=== PATIENT | male | born 1965 | race Hispanic/Latino ===

== ENCOUNTER 2018-02-18 00:20 | Emergency (ER) | payer BC ==
[2018-02-18] MEDS ORDERED: ONDANSETRON HCL 4 MG/2 ML VIAL ONE (00:54)
[2018-02-18 00:55] LABS: BASOPHILS % (AUTO) 0.5 % (0.0-5.0); EOSINOPHILS % (AUTO) 2.2 % (0.0-8.0); HEMATOCRIT 51.6 % (42-54); LYMPHOCYTES % (AUTO) 23.8 % (21.0-51.0); MEAN CORPUSCULAR HEMOGLOBIN 27.6 pg (27.0-33.0); MEAN CORPUSCULAR HGB CONC 31.5 g/dL (32.0-36.0); MEAN CORPUSCULAR VOLUME 87.7 fL (79-99); MONOCYTES % (AUTO) 8.9 % (3.0-13.0); NEUTROPHILS % (AUTO) 64.6 % (40.0-77.0); PLATELET COUNT (AUTO) 238 K/uL (130-400); RED BLOOD CELL COUNT(AUTO) 5.88 MIL/uL (4.50-6.20); RED CELL DISTRIBUTION WIDTH 13.6 % (11.0-15.5); WHITE BLOOD COUNT (AUTO) 12.6 K/uL (4.8-10.8)
[2018-02-18] MEDS ORDERED: MORPHINE SULFATE 4 MG/1ML SYG ONE (00:55)
[2018-02-18 01:06] LABS: APPEARANCE,URINE Clear (CLEAR); BILIRUBIN,URINE Negative (NEGATIVE); COLOR,URINE Yellow (YELLOW); GLUCOSE, URINE (UA) Negative (NEGATIVE); KETONES,URINE Negative (NEGATIVE); LEUKOCYTE ESTERASE ,URINE Negative (NEGATIVE); NITRATE,URINE Negative (NEGATIVE); OCCULT BLOOD,URINE Negative (NEGATIVE); PH,URINE 6.5 (5.0-8.0); PROTEIN,URINE Trace (NEGATIVE); UROBILINOGEN,URINE 0.2 mg/dL (0.2-1.0)
[2018-02-18 01:09] LABS: POTASSIUM 3.4 mmol/L (3.5-5.1)
[2018-02-18 01:15] LABS: ALBUMIN 3.9 g/dL (3.5-5.0); BILIRUBIN,TOTAL 0.5 mg/dL (0.2-1.0); TOTAL PROTEIN, SERUM 8.2 g/dL (6.0-8.3)
[2018-02-18 01:19] LABS: INR 0.96 (0.85-1.15); PARTIAL THROMBOPLASTIN TIME 31.2 SEC (26.3-35.5); PROTHROMBIN TIME 10.1 SEC (9.6-11.6)
== END 2018-02-18 03:19 | disposition home or self-care (01) ==
LOC: EDH 00:20
DX: R10.13 Epigastric pain (principal); Z87.891 Personal history of nicotine dependence
CPT/HCPCS: 36415; 74176; 76705; 80053; 81003; 83690; 84484; 85025; 85610; 85730; 93005; 96374; 96375; 99285; J2270; J2405

== ENCOUNTER 2018-04-30 18:16 | Inpatient (IN) | payer BC, OTHER ==
[~2018-04-30] VITALS: Ht 167.6 cm; Wt 135.4 kg
[2018-04-30 18:40] LABS: BASOPHILS % (AUTO) 0.3 % (0.0-5.0); EOSINOPHILS % (AUTO) 0.7 % (0.0-8.0); HEMATOCRIT 46.5 % (42-54); LYMPHOCYTES % (AUTO) 15.2 % (21.0-51.0); MEAN CORPUSCULAR HEMOGLOBIN 28.4 pg (27.0-33.0); MEAN CORPUSCULAR HGB CONC 31.8 g/dL (32.0-36.0); MEAN CORPUSCULAR VOLUME 89.4 fL (79-99); MONOCYTES % (AUTO) 8.9 % (3.0-13.0); NEUTROPHILS % (AUTO) 74.9 % (40.0-77.0); PLATELET COUNT (AUTO) 187 K/uL (130-400)
[2018-04-30 18:50] LABS: CREATININE 0.8 mg/dL (0.5-1.5); POTASSIUM 3.5 mmol/L (3.5-5.1)
[2018-04-30 18:54] LABS: ALBUMIN 3.4 g/dL (3.5-5.0); BILIRUBIN,DIRECT 0.1 mg/dL (0.0-0.3); BILIRUBIN,TOTAL 0.5 mg/dL (0.2-1.0); TOTAL PROTEIN, SERUM 7.1 g/dL (6.0-8.3)
[2018-04-30] MEDS ORDERED: ASPIRIN 325 MG TABLET ONE (18:59)
[2018-04-30] MEDS ORDERED: FUROSEMIDE 10 MG/ML 2ML VIAL ONE ×2 (18:59→19:00)
[2018-04-30 19:03] LABS: CREATINE KINASE, TOTAL 112 U/L (21-232); MYOGLOBIN 25 ng/mL (10-92); TROPONIN I < 0.04 ng/mL (0.00-0.06)
[2018-04-30 19:36] LABS: ABG BASE EXCESS 9.4 mmol/L (-2.0-3.0); ABG HCO3 40.1 mmol/L (21.0-28.0); ABG PCO2 87 mmHg (35-48)
[2018-04-30 19:58] LABS: B-TYPE NATRIURETIC PEPTIDE 64 pg/mL (0-100)
[2018-04-30 20:39] LABS: AMPHET/METH SCREEN,URINE NEGATIVE (NEGATIVE); BARBITURATE SCREEN, URINE NEGATIVE (NEGATIVE); BENZODIAZEPINES SCREEN,URINE NEGATIVE (NEGATIVE); CANNABINOID SCREEN,URINE NEGATIVE (NEGATIVE); COCAINE SCREEN,URINE NEGATIVE (NEGATIVE); OPIATE SCREEN,URINE NEGATIVE (NEGATIVE); PHENCYCLIDINE SCREEN,URINE NEGATIVE (NEGATIVE)
[2018-04-30] MEDS ORDERED: ACETAMINOPHEN 325 MG TAB PO PRN ×2 (21:00)
[2018-04-30] MEDS ORDERED: ONDANSETRON HCL 4 MG/2 ML VIAL IV PRN (21:00)
[2018-04-30 21:10] LABS: HEMOGLOBIN A1C 7.7 % (4.0-6.0)
--- NOTE | 2018-04-30 21:25 | NUR ---
REPORT RECEIVED FROM MISHA MARIA
[2018-04-30] MEDS ORDERED: IPRATROPIUM/ALBUTEROL SULFATE 3 ML SOLUTION IH ONE (21:26)
[2018-04-30] MEDS ORDERED: GLUCAGON 1MG KIT 1 MG ML IM PRN (21:30)
[2018-04-30] MEDS ORDERED: DEXTROSE 50%-WATER 50 ML DISP.SYRIN IV PRN (21:30)
[2018-04-30 21:32] LABS: BILIRUBIN,URINE Negative (NEGATIVE); COLOR,URINE Yellow (YELLOW); GLUCOSE, URINE (UA) Negative (NEGATIVE); KETONES,URINE Negative (NEGATIVE); LEUKOCYTE ESTERASE ,URINE Negative (NEGATIVE); NITRATE,URINE Negative (NEGATIVE); OCCULT BLOOD,URINE Negative (NEGATIVE); PROTEIN,URINE Negative (NEGATIVE); UROBILINOGEN,URINE 0.2 mg/dL (0.2-1.0)
[2018-04-30 21:35] LABS: APPEARANCE,URINE CLEAR (CLEAR)
[2018-04-30 21:49] VITALS: BP 144/95
--- NOTE | 2018-04-30 21:50 | NUR ---
PT ARRIVED TO UNIT. PT IS STABLE. ON BIPAP. /, R20, FIO2 35%. AT BEDSIDE. PT ABLE TO AMBULATE WITHOUT ASSISTANCE. SOB NOTED. NO PAIN STATED. AAOX3. PERRLA. KISWAHILI SPEAKING. NO MEDICAL HISTORY STATED. NO SURGICAL HISTORY STATED. GENE REYES IN ROOM WITH PT. NO MEDICATIONS TAKEN AT HOME. STATES PT HAS NOT VISITED A DOCTOR IN YEARS. ONLY DURING EMERGENCIES. PT HAS GENERAL EDEMA. UPPER EXTREMITIES +2 PITTING, LOWER EXTREMITIES +3 PITTING. ACTIVE BOWEL SOUNDS. LAST BM TODAY 04/30. 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
[2018-04-30] MEDS: IPRATROPIUM/ALBUTEROL SULFATE 3 ML SOLUTION IH SCH (22:00)
[2018-04-30] MEDS ORDERED: POTASSIUM CHLORIDE 20MEQ/100ML 100 ML IV PRN (22:15)
[2018-04-30] MEDS ORDERED: MAGNESIUM 2GM PREMIX 50ML 50 ML IV PRN (22:15)
[2018-04-30] MEDS ORDERED: LIDOCAINE HCL-MPF 1% 2ML VIAL IVP PRN (22:15)
[2018-04-30] MEDS ORDERED: POTASSIUM CHLORIDE 10% ELIXIR 20 MEQ/15 ML UDCUP PO PRN (22:15)
[2018-04-30] MEDS: METHYLPREDNISOLONE SOD SUCC 125MG/2ML VIAL IV SCH (23:00)
[2018-04-30] MEDS: FAMOTIDINE 20MG TAB 20 MG TAB PO SCH (23:00)
[2018-04-30] MEDS: ZOSYN 3.375GM+NS 50ML 50 ML IV SCH (23:00)
[2018-05-01] VITALS (7 sets, daily range): BP systolic 109–138; BP diastolic 65–93
[2018-05-01] MEDS: IPRATROPIUM/ALBUTEROL SULFATE 3 ML SOLUTION IH SCH ×6 (01:25→23:39)
[2018-05-01 03:42] LABS: MEAN CORPUSCULAR HEMOGLOBIN 28.2 pg (27.0-33.0); MEAN CORPUSCULAR VOLUME 91.1 fL (79-99); NUCLEATED RED BLOOD CELLS 0.1 % (0.0-0.19); PLATELET COUNT (AUTO) 203 K/uL (130-400); RED BLOOD CELL COUNT(AUTO) 5.38 MIL/uL (4.50-6.20); RED CELL DISTRIBUTION WIDTH 14.2 % (11.0-15.5); WHITE BLOOD COUNT (AUTO) 11.4 K/uL (4.8-10.8)
[2018-05-01 03:55] LABS: LYMPHOCYTES % (MANUAL) 9 % (22-44); MAN.DIFF COMMENT-IMPRESSION MANUAL DIFFERENTIAL; MONOCYTES % (MANUAL) 8 % (2-9); PLATELET MORPHOLOGY COMMENT ADEQUATE; SEGMENTED NEUTROPHILS % 83 % (40-70)
[2018-05-01 03:56] LABS: CREATININE 0.9 mg/dL (0.5-1.5); MAGNESIUM 1.5 mg/dL (1.80-2.40); POTASSIUM 4.1 mmol/L (3.5-5.1)
[2018-05-01] MEDS: ZOSYN 3.375GM+NS 50ML 50 ML IV SCH ×4 (05:20→20:16)
[2018-05-01] MEDS: METHYLPREDNISOLONE SOD SUCC 125MG/2ML VIAL IV SCH ×2 (05:20→13:09)
[2018-05-01] MEDS: FUROSEMIDE 10 MG/ML 4ML VIAL IV SCH ×2 (05:21→17:06)
[2018-05-01 05:41] LABS: ABG BASE EXCESS 8.9 mmol/L (-2.0-3.0); ABG HCO3 39.1 mmol/L (21.0-28.0); ABG PCO2 82 mmHg (35-48)
[2018-05-01] MEDS ORDERED: METFORMIN HCL 500 MG TAB.SR.24H PO SCH (08:00)
[2018-05-01 08:24] LABS: ABG BASE EXCESS 8.2 mmol/L (-2.0-3.0); ABG HCO3 39.3 mmol/L (21.0-28.0); ABG OXYGEN SATURATION 92.9 % (95.0-99.0); ABG PCO2 90 mmHg (35-48)
--- NOTE | 2018-05-01 08:30 | NUR ---
RESTING IN BED WITH HOB AT SEMI-WRIGHT'S POSITION. EYES CLOSED. BIPAP IN PLACE, /, FIO2 AT 35%, RATE OF 20. OPENS EYES TO VERBAL COMMAND BUT LETHARGIC. DENIES ANY CURRENT PAIN. INFORMED PT. RE:BIPAP USE AND RATIONALE, VERBALIZED UNDERSTANDING AND QUESTIONS ANSWERED. COMPLETE ASSESSMENT DONE. CALL LIGHT WITHIN REACH, VERBALIZED ABILITY TO USE. BED LOW, SIDE RAILS UP X2. ROOM DOOR OPEN.
[2018-05-01] MEDS: FAMOTIDINE 20MG TAB 20 MG TAB PO SCH ×2 (08:36→20:16)
[2018-05-01] MEDS: ENOXAPARIN SODIUM 40 MG/0.4 ML SYRINGE SQ SCH (08:37)
--- NOTE | 2018-05-01 09:00 | NUR ---
REMOVED BIPAP FOR BREAKFAST AND PLACED ON 3L/NC. CALL LIGHT WITHIN REACH.
--- NOTE | 2018-05-01 09:30 | NUR ---
PLACED PT. BACK ON BIPAP AT PREVIOUS SETTINGS. CALL LIGHT WITHIN REACH. SPOUSE AND MOTHER AT BEDSIDE.
[2018-05-01] MEDS ORDERED: FUROSEMIDE 10 MG/ML 4ML VIAL IV SCH (10:15)
--- NOTE | 2018-05-01 11:00 | NUR ---
RESTING IN BED WITH EYES CLOSED, RESP.'S EVEN AND UNLABORED. CALL LIGHT WITHIN REACH.
--- NOTE | 2018-05-01 12:15 | NUR ---
REMOVED BIPAP FOR LUNCH AND PLACED ON 3L/NC. CALL LIGHT WITHIN REACH. SPOUSE AND PT.'S MOTHER AT BEDSIDE.
--- NOTE | 2018-05-01 12:45 | NUR ---
PLACED BACK ON BIPAP. CALL LIGHT WITHIN REACH. SPOUSE AND MOTHER AT BEDSIDE.
[2018-05-01] MEDS: LEVOFLOXACIN 750 MG/D5W 150 ML 150 ML IV SCH (13:08)
[2018-05-01] MEDS: INSULIN HUMULIN R 100 UNIT/ML 3ML SQ SCH ×3 (13:10→20:23)
--- NOTE | 2018-05-01 16:20 | NUR ---
DC Plan Patient lives w/ . Indep performs ADLs. 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 [facility] never has seen a doctor. Low income list provided. [facility] no longer has insurance coverage. Informed cost for home and portable O2 set-up may be around $750. CM to continue to follow. CD Addendum: 05/02/18 at 1711 by JESSICA POPE CM Amended: Links added.
[2018-05-01] MEDS: METFORMIN HCL 500 MG TABLET PO SCH (17:01)
--- NOTE | 2018-05-01 17:10 | NUR ---
REMOVED BIPAP FOR DINNER AND PLACED ON 3L/NC. PT. ABLE TO SPEAK FOR LONGER PERIODS OF TIME WITHOUT SOB. CALL LIGHT WITHIN REACH. SPOUSE AT BEDSIDE.
--- NOTE | 2018-05-01 18:00 | NUR ---
PLACED BACK ON BIPAP. CALL LIGHT WITHIN REACH. SPOUSE AT BEDSIDE.
[2018-05-01] MEDS: SIMVASTATIN 20 MG TABLET PO SCH (20:16)
[2018-05-02] MEDS: IPRATROPIUM/ALBUTEROL SULFATE 3 ML SOLUTION IH SCH ×6 (02:39→21:41)
[2018-05-02 03:00] VITALS: BP 102/65
[2018-05-02 03:41] LABS: BASOPHILS % (AUTO) 0.1 % (0.0-5.0); HEMATOCRIT 46.6 % (42-54); LYMPHOCYTES % (AUTO) 6.5 % (21.0-51.0); MEAN CORPUSCULAR HEMOGLOBIN 28.5 pg (27.0-33.0); MEAN CORPUSCULAR HGB CONC 31.9 g/dL (32.0-36.0); MEAN CORPUSCULAR VOLUME 89.5 fL (79-99); MONOCYTES % (AUTO) 8.1 % (3.0-13.0); NEUTROPHILS % (AUTO) 85.3 % (40.0-77.0); PLATELET COUNT (AUTO) 238 K/uL (130-400); RED CELL DISTRIBUTION WIDTH 13.8 % (11.0-15.5); WHITE BLOOD COUNT (AUTO) 10.4 K/uL (4.8-10.8)
[2018-05-02 04:05] LABS: CREATININE 1.3 mg/dL (0.5-1.5); MAGNESIUM 1.8 mg/dL (1.80-2.40); POTASSIUM 4.3 mmol/L (3.5-5.1); THYROID STIMULATING HORMONE 0.85 uIU/mL (0.36-3.74)
[2018-05-02] MEDS: ZOSYN 3.375GM+NS 50ML 50 ML IV SCH ×3 (05:02→20:46)
[2018-05-02] MEDS: FUROSEMIDE 10 MG/ML 4ML VIAL IV SCH ×2 (05:02→17:26)
[2018-05-02] MEDS: INSULIN HUMULIN R 100 UNIT/ML 3ML SQ SCH ×4 (05:59→20:47)
[2018-05-02 08:08] VITALS: BP 132/81
--- NOTE | 2018-05-02 08:15 | NUR ---
UPON ENTERING ROOM, PT. SITTING UP ON SIDE OF BED WITH BIPAP IN PLACE. REMOVED BIPAP AND PLACED ON 3L/NC FOR BREAKFAST. AAOX3, RESP.'S EVEN AND UNLABORED. DENIES ANY C/O SOB, DENIES ANY CURRENT PAIN. STATES BREATHING "MUCH BETTER." COMPLETE ASSESSMENT DONE. INFORMED PT. TO CALL FOR ASSISTANCE IF NEEDED OR FEELS SOB AND BIPAP CAN BE REAPPLIED, VERBALIZED UNDERSTANDING. CALL LIGHT WITHIN REACH, VERBALIZED ABILITY TO USE. BED LOW, SIDE RAILS UP X2.
[2018-05-02] MEDS: ASPIRIN 81MG TAB.CHEW PO SCH (08:17)
[2018-05-02] MEDS: FAMOTIDINE 20MG TAB 20 MG TAB PO SCH ×2 (08:17→20:47)
[2018-05-02] MEDS: METFORMIN HCL 500 MG TABLET PO SCH ×3 (08:17→17:26)
[2018-05-02] MEDS: ENOXAPARIN SODIUM 40 MG/0.4 ML SYRINGE SQ SCH (08:18)
[2018-05-02] MEDS: LEVOFLOXACIN 750 MG/D5W 150 ML 150 ML IV SCH (08:21)
--- NOTE | 2018-05-02 08:55 | NUR ---
PT. IN W/C HEADED FOR CT CHEST W/O CONTRAST. DR. GUILLEN IN ROOM ASSESSING/SPEAKING WITH PT. RE:PLAN OF CARE. QUESTIONS ANSWERED BY DR. GUILLEN.
[2018-05-02] MEDS ORDERED: LEVOFLOXACIN 750 MG/D5W 150 ML 150 ML IV SCH (09:00)
[2018-05-02 11:00] LABS: ABG BASE EXCESS 10.3 mmol/L (-2.0-3.0); ABG HCO3 39.2 mmol/L (21.0-28.0); ABG OXYGEN SATURATION 80.4 % (95.0-99.0); ABG PCO2 72 mmHg (35-48)
[2018-05-02 12:00] VITALS: BP 107/54
--- NOTE | 2018-05-02 13:05 | NUR ---
Kleber MCCRACKEN BOBBIN FIXER IN ROOM SPEAKING WITH PT. AND PT.'S SPOUSE AT BEDSIDE.
[2018-05-02 16:00] VITALS: BP 107/77
--- NOTE | 2018-05-02 17:28 | NUR ---
Nutrition Intervention: Nutrition notification for morbid obesity, wt loss recommendations. Pt new to DM II. JAVIER provided pt with diabetes diet education with wt loss tips. Pt continues to need reinforcements on diabetes diet, JAVIER referred pt to community classes that will teach him more on the diet. Pt encouraged to begin walking on a daily basis with his . Pt verbalize understanding. Pt with multiple dietary questions and concerns, all questions answered by JAVIER. Recommendations: Continue current diet therapy. Please consult JAVIER as nutrition concerns arise. Addendum: 05/02/18 at 1731 by [address] Amended: Links added.
[2018-05-02 19:00] VITALS: BP 112/65
[2018-05-02] MEDS: SIMVASTATIN 20 MG TABLET PO SCH (20:47)
[2018-05-02 23:00] VITALS: BP 121/89
[2018-05-03] MEDS: IPRATROPIUM/ALBUTEROL SULFATE 3 ML SOLUTION IH SCH ×6 (01:19→22:09)
[2018-05-03 03:00] VITALS: BP 126/77
[2018-05-03 03:46] LABS: HEMATOCRIT 46.2 % (42-54); MEAN CORPUSCULAR HEMOGLOBIN 28.3 pg (27.0-33.0); MEAN CORPUSCULAR HGB CONC 31.2 g/dL (32.0-36.0); MEAN CORPUSCULAR VOLUME 90.6 fL (79-99); PLATELET COUNT (AUTO) 226 K/uL (130-400); RED CELL DISTRIBUTION WIDTH 14.3 % (11.0-15.5); WHITE BLOOD COUNT (AUTO) 10.8 K/uL (4.8-10.8)
[2018-05-03 04:12] LABS: CREATININE 1.2 mg/dL (0.5-1.5); POTASSIUM 3.4 mmol/L (3.5-5.1)
[2018-05-03] MEDS: ZOSYN 3.375GM+NS 50ML 50 ML IV SCH ×3 (04:57→20:18)
[2018-05-03] MEDS: FUROSEMIDE 10 MG/ML 4ML VIAL IV SCH ×2 (04:57→16:48)
[2018-05-03] MEDS: POTASSIUM CHLORIDE 20 MEQ ERTAB PO PRN ×2 (04:58→06:35)
[2018-05-03] MEDS: INSULIN HUMULIN R 100 UNIT/ML 3ML SQ SCH ×4 (07:30→21:00)
[2018-05-03 07:48] VITALS: BP 121/74
[2018-05-03] MEDS: LEVOFLOXACIN 750 MG/D5W 150 ML 150 ML IV SCH (09:12)
[2018-05-03] MEDS: ENOXAPARIN SODIUM 40 MG/0.4 ML SYRINGE SQ SCH (09:19)
[2018-05-03] MEDS: FAMOTIDINE 20MG TAB 20 MG TAB PO SCH ×2 (09:25→20:18)
[2018-05-03] MEDS: METFORMIN HCL 500 MG TABLET PO SCH ×3 (09:26→16:48)
[2018-05-03] MEDS: ASPIRIN 81MG TAB.CHEW PO SCH (09:26)
[2018-05-03 11:19] VITALS: BP 120/74
[2018-05-03 15:50] VITALS: BP 121/59
[2018-05-03 19:30] VITALS: BP 130/75
[2018-05-03] MEDS: SIMVASTATIN 20 MG TABLET PO SCH (20:18)
[2018-05-04 01:34] VITALS: BP 126/73
[2018-05-04] MEDS: IPRATROPIUM/ALBUTEROL SULFATE 3 ML SOLUTION IH SCH ×6 (02:14→21:37)
[2018-05-04 05:24] VITALS: BP 120/71
[2018-05-04] MEDS: FUROSEMIDE 10 MG/ML 4ML VIAL IV SCH ×2 (05:32→16:51)
[2018-05-04] MEDS: ZOSYN 3.375GM+NS 50ML 50 ML IV SCH (05:32)
[2018-05-04] MEDS: POTASSIUM CHLORIDE 20 MEQ ERTAB PO PRN (05:34)
[2018-05-04] MEDS: INSULIN HUMULIN R 100 UNIT/ML 3ML SQ SCH ×4 (07:11→21:00)
[2018-05-04 07:35] VITALS: BP 130/77
--- NOTE | 2018-05-04 08:30 | NUR ---
DR. ANNA IS IN TO SEE PATIENT. PER MD, PATIENT WILL NEED A SLEEP STUDY WHEN HE GETS DISCHARGED.
[2018-05-04] MEDS: LEVOFLOXACIN 750 MG/D5W 150 ML 150 ML IV SCH (09:00)
[2018-05-04] MEDS: FAMOTIDINE 20MG TAB 20 MG TAB PO SCH ×2 (09:19→20:18)
[2018-05-04] MEDS: METFORMIN HCL 500 MG TABLET PO SCH ×3 (09:19→16:51)
[2018-05-04] MEDS: ENOXAPARIN SODIUM 40 MG/0.4 ML SYRINGE SQ SCH (09:20)
[2018-05-04] MEDS: ASPIRIN 81MG TAB.CHEW PO SCH (09:26)
[2018-05-04] MEDS: LEVOFLOXACIN 750 MG TABLET PO SCH (10:07)
[2018-05-04 11:51] VITALS: BP 120/90
--- NOTE | 2018-05-04 13:30 | NUR ---
DR. Abrams AND DEBBIE CAMPOS NP ARE ROUNDING ON THIS PATIENT. PER MD, PATIENT WILL NEED TO BE REEVALUATED BY RT FOR HOME O2 TOMORROW. WILL CONTINUE TO MONITOR PATIENT FOR NOW.
[2018-05-04 16:33] VITALS: BP 123/82
[2018-05-04 20:09] VITALS: BP 117/68
[2018-05-04] MEDS: SIMVASTATIN 20 MG TABLET PO SCH (20:18)
[2018-05-05] VITALS: BP 126/74
[2018-05-05] MEDS: IPRATROPIUM/ALBUTEROL SULFATE 3 ML SOLUTION IH SCH ×4 (02:39→13:58)
[2018-05-05 04:01] LABS: BASOPHILS % (AUTO) 0.3 % (0.0-5.0); EOSINOPHILS % (AUTO) 2.5 % (0.0-8.0); HEMATOCRIT 44.4 % (42-54); LYMPHOCYTES % (AUTO) 19.5 % (21.0-51.0); MEAN CORPUSCULAR HEMOGLOBIN 28.3 pg (27.0-33.0); MEAN CORPUSCULAR HGB CONC 31.4 g/dL (32.0-36.0); MEAN CORPUSCULAR VOLUME 90.1 fL (79-99); NEUTROPHILS % (AUTO) 65.7 % (40.0-77.0); PLATELET COUNT (AUTO) 212 K/uL (130-400); RED BLOOD CELL COUNT(AUTO) 4.92 MIL/uL (4.50-6.20); RED CELL DISTRIBUTION WIDTH 13.8 % (11.0-15.5)
[2018-05-05 04:39] VITALS: BP 108/76
[2018-05-05 04:51] LABS: CREATININE 0.8 mg/dL (0.5-1.5); POTASSIUM 3.8 mmol/L (3.5-5.1)
[2018-05-05] MEDS: FUROSEMIDE 10 MG/ML 4ML VIAL IV SCH (05:50)
[2018-05-05] MEDS: INSULIN HUMULIN R 100 UNIT/ML 3ML SQ SCH ×2 (06:23→11:30)
[2018-05-05 07:54] VITALS: BP 122/83
[2018-05-05] MEDS: METFORMIN HCL 500 MG TABLET PO SCH ×2 (09:33→12:06)
[2018-05-05] MEDS: LEVOFLOXACIN 750 MG TABLET PO SCH (09:33)
[2018-05-05] MEDS: ASPIRIN 81MG TAB.CHEW PO SCH (09:33)
[2018-05-05] MEDS: FAMOTIDINE 20MG TAB 20 MG TAB PO SCH (09:33)
[2018-05-05] MEDS: ENOXAPARIN SODIUM 40 MG/0.4 ML SYRINGE SQ SCH (09:34)
--- NOTE | 2018-05-05 11:21 | NUR ---
Patient walked without 02 around tele unit. O2 saturation ranges between 92% - 94%. Patient back in room O2sat 91%. Patient put back on O2 2L NC. O2sat 96%.
[2018-05-05 11:46] VITALS: BP 145/91
--- NOTE | 2018-05-05 13:59 | NUR ---
PATIENT WALKED AROUND THE TELE AND ICU UNIT WITHOUT O2. PATIENT O2SAT RANGE 91% TO 93%. WHEN PATIENT WOULD STOP WALKING O2 SAT WOULD INCREASE TO 95%. PATIENT BACK IN ROOM, O2SAT 95%.
[2018-05-05] MEDS ORDERED: SIMV20TA6 PO (14:31)
[2018-05-05] MEDS ORDERED: METF-445 PO (14:31)
[2018-05-05 15:26] VITALS: BP 121/74
[2018-05-08 08:45] LABS: ABG BASE EXCESS 10.9 mmol/L (-2.0-3.0); ABG HCO3 40.1 mmol/L (21.0-28.0); ABG OXYGEN SATURATION 95.4 % (95.0-99.0); ABG PCO2 74 mmHg (35-48)
== END 2018-05-05 16:15 | disposition home or self-care (01) | DRG 189 ==
LOC: EDH 18:16 → EDHIP 18:17 → 2DH 21:50
PROVIDERS: ADMIT Internal Medicine; ATTEND Internal Medicine
PROC: 5A09357 Assistance with Respiratory Ventilation, Less than 24 Consecutive Hours, Continuous Positive Airway Pressure (ICD-10-PCS; principal; 2018-05-01)
PROC: 5A09357 Assistance with Respiratory Ventilation, Less than 24 Consecutive Hours, Continuous Positive Airway Pressure (ICD-10-PCS; 2018-05-02)
PROC: 5A09357 Assistance with Respiratory Ventilation, Less than 24 Consecutive Hours, Continuous Positive Airway Pressure (ICD-10-PCS; 2018-05-03)
PROC: 5A09357 Assistance with Respiratory Ventilation, Less than 24 Consecutive Hours, Continuous Positive Airway Pressure (ICD-10-PCS; 2018-05-05)
DX: J96.21 Acute and chronic respiratory failure with hypoxia (principal); E66.2 Morbid (severe) obesity with alveolar hypoventilation; E87.2 Acidosis; G93.40 Encephalopathy, unspecified; Z68.42 Body mass index [BMI] 45.0-49.9, adult; Z99.11 Dependence on respirator [ventilator] status; J96.22 Acute and chronic respiratory failure with hypercapnia; E11.9 Type 2 diabetes mellitus without complications; E83.42 Hypomagnesemia; F17.200 Nicotine dependence, unspecified, uncomplicated; I10 Essential (primary) hypertension; Z80.42 Family history of malignant neoplasm of prostate; Z82.49 Family history of ischemic heart disease and other diseases of the circulatory system
CPT/HCPCS: 36415; 36600; 71045; 71046; 71250; 78580; 80048; 80061; 80076; 80305; 81003; 82550; 82803; 82948; 83036; 83735; 83874; 83880; 84443; 84484; 85025; 85027; 87040; 87486; 87581; 87633; 87798; 87804; 93005; 93306; 93970; 94640; 94660; 94664; A9540; G0378; J1650; J1815; J1940; J1956; J2543; J2930; J3475

== ENCOUNTER 2018-08-29 11:20 | Observation (INO) | payer OTHER ==
[~2018-08-29] VITALS: Ht 165.1 cm; Wt 134.4 kg
[~2018-08-29 11:20] MED LIST: METF-445 PO; SIMV20TA6 PO
[2018-08-29 11:52] LABS: ABG BASE EXCESS 3.8 mmol/L (-2.0-3.0); ABG HCO3 30.5 mmol/L (21.0-28.0); ABG OXYGEN SATURATION 96.5 % (95.0-99.0); ABG PCO2 54 mmHg (35-48)
[2018-08-29 12:02] LABS: BASOPHILS % (AUTO) 0.6 % (0.0-5.0); EOSINOPHILS % (AUTO) 3.1 % (0.0-8.0); HEMATOCRIT 40.1 % (42-54); LYMPHOCYTES % (AUTO) 20.9 % (21.0-51.0); MEAN CORPUSCULAR HEMOGLOBIN 28.5 pg (27.0-33.0); MEAN CORPUSCULAR HGB CONC 32.3 g/dL (32.0-36.0); MEAN CORPUSCULAR VOLUME 88.4 fL (79-99); MONOCYTES % (AUTO) 10.2 % (3.0-13.0); NEUTROPHILS % (AUTO) 65.2 % (40.0-77.0); PLATELET COUNT (AUTO) 215 K/uL (130-400); RED BLOOD CELL COUNT(AUTO) 4.54 MIL/uL (4.50-6.20); RED CELL DISTRIBUTION WIDTH 13.8 % (11.0-15.5); WHITE BLOOD COUNT (AUTO) 11.2 K/uL (4.8-10.8)
[2018-08-29 12:03] LABS: INR 0.96 (0.85-1.15); PARTIAL THROMBOPLASTIN TIME 36.4 SEC (26.3-35.5); PROTHROMBIN TIME 10.1 SEC (9.6-11.6)
[2018-08-29 12:30] LABS: CREATININE 0.8 mg/dL (0.5-1.5); POTASSIUM 3.6 mmol/L (3.5-5.1)
[2018-08-29 12:36] LABS: ALBUMIN 3.8 g/dL (3.5-5.0); BILIRUBIN,TOTAL 0.6 mg/dL (0.2-1.0); TOTAL PROTEIN, SERUM 7.2 g/dL (6.0-8.3)
[2018-08-29 12:40] LABS: B-TYPE NATRIURETIC PEPTIDE 15 pg/mL (0-100)
[2018-08-29] MEDS ORDERED: ASPIRIN 325 MG TABLET ONE (12:42)
[2018-08-29] MEDS ORDERED: NITROGLYCERIN 1GM/1 INCH PACKET TD ONE ×2 (12:42→19:49)
[2018-08-29 13:10] LABS: APPEARANCE,URINE Clear (CLEAR); BILIRUBIN,URINE Negative (NEGATIVE); COLOR,URINE Yellow (YELLOW); GLUCOSE, URINE (UA) Negative (NEGATIVE); KETONES,URINE Negative (NEGATIVE); LEUKOCYTE ESTERASE ,URINE Trace (NEGATIVE); NITRATE,URINE Negative (NEGATIVE); OCCULT BLOOD,URINE Negative (NEGATIVE); PROTEIN,URINE Negative (NEGATIVE)
[2018-08-29 13:18] LABS: AMPHET/METH SCREEN,URINE NEGATIVE (NEGATIVE); BARBITURATE SCREEN, URINE NEGATIVE (NEGATIVE); BENZODIAZEPINES SCREEN,URINE NEGATIVE (NEGATIVE); CANNABINOID SCREEN,URINE NEGATIVE (NEGATIVE); COCAINE SCREEN,URINE NEGATIVE (NEGATIVE); OPIATE SCREEN,URINE NEGATIVE (NEGATIVE); PHENCYCLIDINE SCREEN,URINE NEGATIVE (NEGATIVE)
[2018-08-29 13:20] LABS: BACTERIA,URINE Rare /HPF (None Seen); RBC,URINE 0-1 /HPF (0-1); SQUAMOUS EPITHELIAL CELL,UR Rare /HPF (0-2)
[2018-08-29 13:21] LABS: MUCUS,URINE Rare LPF (None Seen)
[2018-08-29] MEDS ORDERED: ONDANSETRON HCL 4 MG/2 ML VIAL IV PRN (19:00)
[2018-08-29] MEDS: NITROGLYCERIN 1GM/1 INCH PACKET TD SCH (19:00)
[2018-08-29] MEDS ORDERED: ACETAMINOPHEN 325 MG TAB PO PRN ×2 (19:00)
[2018-08-29] MEDS ORDERED: NITROGLYCERIN 0.4 MG SL TAB SL PRN (19:00)
[2018-08-29] MEDS ORDERED: HYDRALAZINE HCL 20 MG/ML VIAL IV PRN (19:00)
[2018-08-29 19:41] LABS: HEMOGLOBIN A1C 7.2 % (4.0-6.0)
[2018-08-29 20:12] LABS: CREATINE KINASE, TOTAL 102 U/L (21-232); MYOGLOBIN 58 ng/mL (10-92); TROPONIN I < 0.04 ng/mL (0.00-0.06)
[2018-08-29] MEDS ORDERED: FUROSEMIDE 10 MG/ML 4ML VIAL ONE (20:57)
[2018-08-29] MEDS ORDERED: METOPROLOL TARTRATE 25 MG TAB ONE (20:58)
[2018-08-29] MEDS ORDERED: FAMOTIDINE/PF 20 MG/2 ML VIAL IV ONE (20:59)
[2018-08-29] MEDS ORDERED: INSULIN GLARGINE 100 UNITS/ML 10 ML VIAL SQ SCH (21:00)
[2018-08-29] MEDS: FUROSEMIDE 10 MG/ML 4ML VIAL IVP SCH (21:00)
[2018-08-29] MEDS: METOPROLOL TARTRATE 25 MG TAB PO SCH (21:00)
[2018-08-29] MEDS: FAMOTIDINE/PF 20 MG/2 ML VIAL IV SCH (21:00)
[2018-08-30 00:16] VITALS: BP 108/74
[2018-08-30] MEDS: NITROGLYCERIN 1GM/1 INCH PACKET TD SCH ×2 (02:42→11:12)
[2018-08-30 04:00] VITALS: BP 128/80
[2018-08-30 04:28] LABS: CHOLESTEROL 126 mg/dL (<200); CREATINE KINASE, TOTAL 100 U/L (21-232); HDL CHOLESTEROL 40 mg/dL (29-71); LDL DIRECT 65 mg/dL (0-99); MYOGLOBIN 43 ng/mL (10-92); TRIGLYCERIDES 139 mg/dL (30-200); TROPONIN I < 0.04 ng/mL (0.00-0.06)
[2018-08-30 07:52] VITALS: BP 133/95
[2018-08-30] MEDS: METOPROLOL TARTRATE 25 MG TAB PO SCH (08:16)
[2018-08-30] MEDS: FAMOTIDINE/PF 20 MG/2 ML VIAL IV SCH (08:18)
[2018-08-30] MEDS: FUROSEMIDE 10 MG/ML 4ML VIAL IVP SCH (08:18)
[2018-08-30] MEDS ORDERED: ENOXAPARIN SODIUM 40 MG/0.4 ML SYRINGE SQ SCH (09:00)
[2018-08-30] MEDS ORDERED: LISINOPRIL 5 MG TABLET PO SCH (09:00)
[2018-08-30 11:30] LABS: CREATINE KINASE, TOTAL 120 U/L (21-232); MYOGLOBIN 63 ng/mL (10-92); TROPONIN I < 0.04 ng/mL (0.00-0.06)
[2018-08-30 11:50] VITALS: BP 112/84
[2018-08-30 16:16] VITALS: BP 106/60
[2018-08-30] MEDS ORDERED: LISI10TA7 PO (16:19)
[2018-08-30] MEDS ORDERED: METO25TA6 PO (16:19)
[2018-08-30] MEDS ORDERED: LISI-617 PO (16:21)
--- NOTE | 2018-08-30 16:35 | NUR ---
DR. GUILLEN IN ROOM SPEAKING WITH PT.
--- NOTE | 2018-08-30 18:20 | NUR ---
HL REMOVED, CATHETER INTACT. DISCHARGE INSTRUCTIONS GIVEN TO PT. AND PT.'S SPOUSE AT BEDSIDE, VERBALIZED MUTUAL UNDERSTANDING.
--- NOTE | 2018-08-30 18:25 | NUR ---
DISCHARGED HOME VIA W/C WITH BELONGINGS. ACCOMPANIED BY PT.'S SPOUSE AND Glilian CASTILLO, PCP.
== END 2018-08-30 18:36 | disposition home or self-care (01) ==
LOC: EDH 11:20 → EDHIP 11:21 → 2AH 23:47
PROVIDERS: ADMIT Internal Medicine; ATTEND Internal Medicine
DX: R07.89 Other chest pain (principal); E11.9 Type 2 diabetes mellitus without complications; E78.2 Mixed hyperlipidemia; G47.33 Obstructive sleep apnea (adult) (pediatric); I11.0 Hypertensive heart disease with heart failure; I50.32 Chronic diastolic (congestive) heart failure; J96.11 Chronic respiratory failure with hypoxia; J96.12 Chronic respiratory failure with hypercapnia; E66.01 Morbid (severe) obesity due to excess calories; Z87.891 Personal history of nicotine dependence; Z91.19 Patient's noncompliance with other medical treatment and regimen; Z99.81 Dependence on supplemental oxygen; Z80.42 Family history of malignant neoplasm of prostate; Z68.42 Body mass index [BMI] 45.0-49.9, adult; Z79.899 Other long term (current) drug therapy
CPT/HCPCS: 36415 ×2; 36600; 71045; 80053; 80061; 80305; 81001; 82550 ×4; 82803; 82948 ×3; 83036; 83874 ×3; 83880 ×2; 84484 ×4; 85025; 85610; 85730; 93005 ×5; 94660; 96372; 96374; 96375; 99291; G0378 ×24; J1650; J1940 ×2; J3490 ×2